=== PATIENT | female | born 1960 | race Caucasian/White ===

== ENCOUNTER 2017-02-11 13:23 | Day surgery (SDC) | payer OTHER ==
[~2017-02-11] VITALS: Ht 165.1 cm; Wt 87.9 kg
[2017-02-11] MEDS ORDERED: ERGO400 (14:27)
[2017-02-11] MEDS ORDERED: Omeprazole20 M1 (14:27)
[2017-02-11] MEDS ORDERED: CYCL10 (14:27)
[2017-02-11] MEDS ORDERED: DULERA 200 MCG/13 GM (14:28)
[2017-02-11] MEDS ORDERED: Prozac20 MG (14:28)
[2017-02-11] MEDS ORDERED: SPIR50 (14:29)
== END 2017-02-11 16:13 | disposition home or self-care (01) ==
LOC: ORSCSDS 13:23
PROVIDERS: Internal Medicine Gastroenterology
PROC: 0DBH8ZX Excision of Cecum, Via Natural or Artificial Opening Endoscopic, Diagnostic (ICD-10-PCS; principal; 2017-02-11 14:45)
PROC: 0DB68ZX Excision of Stomach, Via Natural or Artificial Opening Endoscopic, Diagnostic (ICD-10-PCS; principal; 2017-02-11 14:45)
PROC: 0DBE8ZX Excision of Large Intestine, Via Natural or Artificial Opening Endoscopic, Diagnostic (ICD-10-PCS; principal; 2017-02-11 14:45)
DX: K21.9 Gastro-esophageal reflux disease without esophagitis (principal); D12.0 Benign neoplasm of cecum; R19.7 Diarrhea, unspecified; K64.8 Other hemorrhoids; K29.70 Gastritis, unspecified, without bleeding; K44.9 Diaphragmatic hernia without obstruction or gangrene; K22.2 Esophageal obstruction; K57.30 Diverticulosis of large intestine without perforation or abscess without bleeding; R10.9 Unspecified abdominal pain; Z86.010 Personal history of colon polyps; R68.81 Early satiety; R11.0 Nausea; Z79.899 Other long term (current) drug therapy; Z87.891 Personal history of nicotine dependence
CPT/HCPCS: 88305; 88342; J7120

== ENCOUNTER → 2017-02-23 | Outpatient (CLI) | payer OTHER ==
[~2017-02-23] MED LIST: CYCL10; DULERA 200 MCG/13 GM; ERGO400; Omeprazole20 M1; Prozac20 MG; SPIR50
== END | disposition home or self-care (01) ==
LOC: LAB 13:36
PROVIDERS: Registered Nurse
DX: Z12.4 Encounter for screening for malignant neoplasm of cervix (principal)
CPT/HCPCS: G0123

== ENCOUNTER 2019-11-09 06:48 | Day surgery (SDC) | payer OTHER ==
[~2019-11-09] VITALS: Ht 165.1 cm; Wt 89.5 kg
[~2019-11-09 06:48] MED LIST changes: +CYCL10 PO; +DULERA 200 MCG-13 GM INH; +MONT10T PO; +OMEP20ER PO; +Prozac20 MG PO
[2019-11-09] MEDS ORDERED: TRAM50 PO (07:21)
[2019-11-09] MEDS ORDERED: Norco 5-325 Ta1 EACH PO (07:21)
--- NOTE | 2019-11-09 08:40 | NUR ---
11/09/19 0840 Norma Sandhu PT REQUIRED 2ND RN TO ASSIST WITH JAW THRUST THROUGHOUT ENTIRE EGD. PT REMAINED STABLE THROUGHOUT
== END 2019-11-09 09:09 | disposition home or self-care (01) ==
LOC: ORSCSDS 06:48
PROVIDERS: Surgery
PROC: 0DB78ZX Excision of Stomach, Pylorus, Via Natural or Artificial Opening Endoscopic, Diagnostic (ICD-10-PCS; principal; 2019-11-09 08:00)
PROC: 0DB48ZX Excision of Esophagogastric Junction, Via Natural or Artificial Opening Endoscopic, Diagnostic (ICD-10-PCS; principal; 2019-11-09 08:00)
PROC: 0DJD8ZZ Inspection of Lower Intestinal Tract, Via Natural or Artificial Opening Endoscopic (ICD-10-PCS; principal; 2019-11-09 08:00)
DX: K21.9 Gastro-esophageal reflux disease without esophagitis (principal); D50.9 Iron deficiency anemia, unspecified; K44.9 Diaphragmatic hernia without obstruction or gangrene; K29.80 Duodenitis without bleeding; J45.909 Unspecified asthma, uncomplicated; G47.33 Obstructive sleep apnea (adult) (pediatric); Z79.899 Other long term (current) drug therapy
CPT/HCPCS: 88305; 88342; J0461; J2250; J2405; J2704; J7120

== ENCOUNTER 2020-05-03 06:20 | Day surgery (SDC) | payer OTHER ==
[~2020-05-03] VITALS: Ht 165.1 cm; Wt 87.5 kg
[~2020-05-03 06:20] MED LIST changes: +GABA300 PO; +Norco 5-325 Ta1 EACH PO; +TRAM50 PO
--- NOTE | 2020-05-03 18:04 | NUR ---
SHIFT SUMMARY PT A&OX4, VSS/RA, S/P HIATAL HERNIA/FUNDIPLICATION, 5 LAP SITES WOUND GLUE CDI. PT AMBULATING TO BRP, IN HALLWAY, UP TO CHAIR. PAIN MANAGED WITH 25 MCGS FENT. GODFREY PO CLEAR LIQUID DIET. VOIDING WELL. WILL REPORT TO ONCOMING NOC RN.
--- NOTE | 2020-05-04 05:06 | NUR ---
SHIFT SUMMARY: PT POD#1 FOR HIATAL HERNIA FUNDOPLICATION. 5 LAP SITES C/D/I WITH WOUND GLUE. PAIN BEING MANAGED WITH 25MCG OF FENTANYL. PT MAINLY C/O PRESSURE IN SHOULDERS R/T FLATUS. AMBULATING TO BATHROOM AND VOIDING WELL. SBA FOR ALL TRANSFERS R/T TUBES/LINES. PT TOLERATING A CLEAR LIQ DIET. DENIES N/V T/O SHIFT. VS WNL.
[2020-05-04] MEDS ORDERED: Norco 5-325 Ta1 EACH PO (13:56)
[2020-05-04] MEDS ORDERED: ZOFRAN4 MG PO (13:57)
--- NOTE | 2020-05-04 15:35 | NUR ---
DISCHARGE SUMMARY PT LEFT VIA WHEELCHAIR AT 1520. PT DECLINED PAIN SINCE MEDICATED THIS AM. DENIES NAUSEA DURING ENTIRE SHIFT. PT IND IN ROOM, NO WEAKNESS NOTED. AMBULATES WELL, VOIDING. REPORTS PASSING FLATUS. DISCHARGE INFORMATION GONE OVER WITH PATIENT, DENIED FURTHER QUESTIONS. ALL BELONGINGS WITH PATIENT, IV REMOVED PRIOR TO DISCHARGE.
== END 2020-05-04 15:20 | disposition home or self-care (01) ==
LOC: ORSCMMR 06:20 → ORD 07:30 → SURS 11:03 → ORSCMMR 05-04 15:20
PROC: 0BQT4ZZ Repair Diaphragm, Percutaneous Endoscopic Approach (ICD-10-PCS; principal; 2020-05-04)
DX: K44.9 Diaphragmatic hernia without obstruction or gangrene (principal); K21.9 Gastro-esophageal reflux disease without esophagitis; F32.9 Major depressive disorder, single episode, unspecified; G47.33 Obstructive sleep apnea (adult) (pediatric); Z79.899 Other long term (current) drug therapy; Z87.891 Personal history of nicotine dependence
CPT/HCPCS: 94762; A9270; J0690; J1100; J1650; J1885; J2250; J2405; J2704; J3010; J7120